=== PATIENT | female | born 1960 | race Caucasian/White ===

== ENCOUNTER 2017-08-06 22:42 | Emergency (ER) | payer OTHER ==
[~2017-08-06] VITALS: Ht 154.9 cm; Wt 101.6 kg
--- NOTE | ~2017-08-06 | EKG ---
[facility] [place] [address] ELECTROCARDIOGRAM REPORT Name: DAVE JOHNSON Room #: DEP ROBBY Gutierrez#: [id number] Admission: 08/06/17 Attend Phys: Discharge: 08/06/17 Date of : 62 Report #: [id number] THIS REPORT FOR: //name// [facility] ED Test Date: 2017-08-06 Test Time: 23:13:28 Pat Name: DAVE JOHNSON Department: Room: Gender: F [employer] Lab[employer]: JUAN : 1960 Requested By: Sameer Walker Order Number: [id number] MD: Esvin Snell Measurements Intervals [place] Rate: 66 P: 28 KS: 218 QRS: -16 QRSD: 83 T: 59 QT: 389 QTc: 408 Interpretive Statements Sinus rhythm Left ventricular hypertrophy Anterior Q waves, possibly due to LVH No previous ECG available for comparison Electronically Signed On 08-07-2017 7:55:37 [employer] by Esvin Snell [email or web address] <ELECTRONICALLY SIGNED> By: Esvin Snell MD, [facility] 08/07/17 [id number] Esvin Snell MD, FACC /EPI
[2017-08-06] MEDS ORDERED: ZOLOFT50 MG PO (23:23)
[2017-08-06] MEDS ORDERED: XANAX 0.5 MG0.5 MG (23:23)
[2017-08-06] MEDS ORDERED: HYDROXYZINE HCL25 M1 (23:24)
[2017-08-06] MEDS ORDERED: CARVEDILOL25 MG PO (23:24)
[2017-08-06] MEDS ORDERED: ABILIFY 5 MG TAB5 MG PO (23:24)
[2017-08-06] MEDS ORDERED: AMLODIPINE BESY10 MG PO (23:25)
[2017-08-06] MEDS ORDERED: KLOR-CON 1010 MEQ PO (23:25)
[2017-08-06] MEDS ORDERED: ASPIR 8181 MG PO (23:25)
[2017-08-06] MEDS ORDERED: HYDROCHLOROTHIA25 M2 PO (23:25)
[2017-08-06] MEDS ORDERED: HYDRALAZINE 5050 MG PO (23:25)
== END 2017-08-06 23:39 | disposition home or self-care (01) ==
LOC: ER 22:42
DX: T50.995A Adverse effect of other drugs, medicaments and biological substances, initial encounter (principal); R42 Dizziness and giddiness; Y92.89 Other specified places as the place of occurrence of the external cause